=== PATIENT | male | born 1955 ===

== ENCOUNTER 2018-11-06 21:52 | Inpatient (IN) | payer MEDICAID, OTHER ==
[2018-11-07] MEDS: HYDROCODONE/APAP (5/325) TAB PO ×2 (00:24→13:54)
[2018-11-07] MEDS: IBUPROFEN 200 MG TAB PO (00:24)
[2018-11-07] MEDS: PIPER-TAZO 3.375 GM IV (PMX) 100 ML IVPB (05:04)
[2018-11-07 05:09] LABS: ADD MAN DIFF? NO
[2018-11-07 05:12] LABS: BASOPHILS % 0.3 % (0.0-2.0); EOSINOPHILS # 0.2 10^3/ul (0.0-0.5); EOSINOPHILS % 2.3 % (0.0-7.0); HEMOGLOBIN 9.5 g/dl (14.0-18.0); LYMPHOCYTES # 2.1 10^3/ul (0.8-2.9); LYMPHOCYTES % 29.6 % (15.0-51.0); MEAN CORPUSCULAR HEMOGLOBIN 28.6 pg (29.0-33.0); MEAN CORPUSCULAR HGB CONC 30.6 g/dl (32.0-37.0); MEAN CORPUSCULAR VOLUME 93.4 fl (82.0-101.0); MEAN PLATELET VOLUME 11.2 fl (7.4-10.4); MONOCYTE # 1.1 10^3/ul (0.3-0.9); MONOCYTES % 14.8 % (0.0-11.0); NEUTROPHIL # 3.8 10^3/ul (1.6-7.5); NEUTROPHILS % 52.9 % (39.0-77.0); PLATELET COUNT 271 10^3/UL (140-415); RED BLOOD COUNT 3.32 10^6/ul (4.70-6.10); RED CELL DISTRIBUTION WIDTH 14.7 % (11.5-14.5)
[2018-11-07 05:12] LABS: WHITE BLOOD COUNT 7.1 10^3/ul (4.8-10.8)
[2018-11-07] MEDS: VANCOMYCIN 1 GM (PMX) 250 ML IVPB (05:37)
[2018-11-07] MEDS ORDERED: NACL 0.9% 3 ML SYG IV (06:00)
[2018-11-07] MEDS ORDERED: HYDROCODONE/APAP (5/325) TAB PO (06:00)
[2018-11-07] MEDS ORDERED: ACETAMINOPHEN 325 MG TAB PO (06:00)
[2018-11-07] MEDS ORDERED: VANCOMYCIN IV PER PHARMACY XX (06:00)
[2018-11-07] MEDS ORDERED: ONDANSETRON 4 MG INJ IV (06:00)
[2018-11-07 06:15] LABS: ALANINE AMINOTRANSFERASE 18 IU/L (13-69); ALBUMIN 3.5 g/dl (3.3-4.9); ALBUMIN/GLOBULIN RATIO 0.68; ALKALINE PHOSPHATASE 93 IU/L (42-121); ANION GAP 6 (5-13); ASPARTATE AMINO TRANSFERASE 58 IU/L (15-46); BILIRUBIN,INDIRECT 0.3 mg/dl (0-1.1); BILIRUBIN,TOTAL 0.3 mg/dl (0.2-1.3); BLOOD UREA NITROGEN 12 mg/dl (7-20); C-REACTIVE PROTEIN 1.9 mg/dl (0.0-0.9); CALCIUM 8.9 mg/dl (8.4-10.2); CARBON DIOXIDE 30 mmol/L (21-31); CHLORIDE 108 mmol/L (97-110); CREATININE 0.75 mg/dl (0.61-1.24); Estimated GFR > 60 mL/min (>60); GLUCOSE 82 mg/dl (70-220); POTASSIUM 4.7 mmol/L (3.5-5.1); SODIUM 144 mmol/L (135-144); TOTAL PROTEIN 8.6 g/dl (6.1-8.1)
[2018-11-07 06:30] LABS: ERYTHROCYTE SEDIMENTATION RATE 51 mm/Hr (0-20)
[2018-11-07] MEDS: CEFEPIME 1GM/50 ML (PMX) 50 ML IVPB (07:46)
[2018-11-07] MEDS: ENOXAPARIN 40 MG/0.4 ML SYG SC (09:00)
[2018-11-07] MEDS: LACTOBACILLUS RHAMNOSUS CAP PO ×2 (13:54→20:24)
[2018-11-07] MEDS: VANCOMYCIN 1 GM 250 ML IVPB (18:11)
[2018-11-08] MEDS: HYDROCODONE/APAP (5/325) TAB PO ×2 (03:33→19:45)
[2018-11-08] MEDS: VANCOMYCIN 1 GM 250 ML IVPB ×2 (05:10→18:54)
[2018-11-08] MEDS: ENOXAPARIN 40 MG/0.4 ML SYG SC (09:00)
[2018-11-08] MEDS: LACTOBACILLUS RHAMNOSUS CAP PO ×2 (09:00→21:00)
[2018-11-08] MEDS: METHADONE (1 MG/ML 5 ML PO UD SYG) PO (14:38)
[2018-11-08 18:17] LABS: ADD MAN DIFF? NO
[2018-11-08 18:21] LABS: WHITE BLOOD COUNT 6.2 10^3/ul (4.8-10.8)
[2018-11-08 18:21] LABS: BASOPHILS % 0.2 % (0.0-2.0); EOSINOPHILS % 0.5 % (0.0-7.0); HEMATOCRIT 33.2 % (42.0-52.0); HEMOGLOBIN 10.3 g/dl (14.0-18.0); LYMPHOCYTES # 1.5 10^3/ul (0.8-2.9); LYMPHOCYTES % 24.8 % (15.0-51.0); MEAN CORPUSCULAR HEMOGLOBIN 28.1 pg (29.0-33.0); MEAN CORPUSCULAR VOLUME 90.7 fl (82.0-101.0); MEAN PLATELET VOLUME 10.6 fl (7.4-10.4); MONOCYTE # 0.5 10^3/ul (0.3-0.9); MONOCYTES % 8.7 % (0.0-11.0); NEUTROPHIL # 4.1 10^3/ul (1.6-7.5); NEUTROPHILS % 65.5 % (39.0-77.0); PLATELET COUNT 299 10^3/UL (140-415); RED BLOOD COUNT 3.66 10^6/ul (4.70-6.10); RED CELL DISTRIBUTION WIDTH 14.3 % (11.5-14.5)
[2018-11-08 18:39] LABS: ANION GAP 9 (5-13); BLOOD UREA NITROGEN 15 mg/dl (7-20); CALCIUM 8.7 mg/dl (8.4-10.2); CARBON DIOXIDE 24 mmol/L (21-31); CHLORIDE 108 mmol/L (97-110); CHOL/HDL RATIO 5.5 RATIO; CHOLESTEROL 155 mg/dl (100-200); CREATININE 0.76 mg/dl (0.61-1.24); Estimated GFR > 60 mL/min (>60); GLUCOSE 72 mg/dl (70-220); HDL CHOLESTEROL 28 mg/dl (30-78); LDL CHOLESTEROL,CALCULATED 111 mg/dl; MAGNESIUM 1.7 mg/dl (1.7-2.5); PHOSPHORUS 4.8 mg/dl (2.5-4.9); POTASSIUM 4.3 mmol/L (3.5-5.1); SODIUM 141 mmol/L (135-144); TRIGLYCERIDES 79 mg/dl (0-149)
[2018-11-08 18:41] LABS: INR 1.08; PROTIME 14.1 Sec (11.9-14.9); PT RATIO 1.1
[2018-11-08 18:43] LABS: VANCOMYCIN,TROUGH 13.7 ug/ml (10.0-20.0)
[2018-11-08 18:50] LABS: IRON 37 ug/dl (35-150)
[2018-11-08 18:59] LABS: % IRON SATURATION 16 % SAT (22-52); TOTAL IRON BINDING CAPACITY 234 ug/dl (241-421)
[2018-11-08] MEDS: ZYVOX 600 MG TAB PO (23:20)
[2018-11-09] MEDS: VANCOMYCIN 1 GM 250 ML IVPB ×2 (05:48→17:05)
[2018-11-09] MEDS: ZYVOX 600 MG TAB PO (05:48)
[2018-11-09 06:26] LABS: ADD UMIC NO; UR ASCORBIC ACID NEGATIVE (NEGATIVE); UR BILIRUBIN (Dip) NEGATIVE (NEGATIVE); UR BLOOD (Dip) NEGATIVE (NEGATIVE); UR CLARITY SLIGHTLY CLOUDY (CLEAR); UR COLOR YELLOW (YELLOW); UR GLUCOSE (Dip) NEGATIVE (NEGATIVE); UR KETONES (Dip) TRACE mg/dL (NEGATIVE); UR LEUKOCYTE ESTERASE (Dip) NEGATIVE Leu/ul (NEGATIVE); UR MUCUS FEW /HPF (NONE SEEN); UR NITRITE (Dip) NEGATIVE (NEGATIVE); UR RBC 1 /HPF (0-5); UR SPECIFIC GRAVITY (Dip) 1.023 (1.003-1.030); UR TOTAL PROTEIN (Dip) NEGATIVE (NEGATIVE); UR UROBILINOGEN (Dip) 1+ mg/dL (NEGATIVE); UR WBC 3 /HPF (0-5)
[2018-11-09 06:50] LABS: AMPHETAMINE/METHAMPHETAMINE NEGATIVE (NEGATIVE); BARBITURATES NEGATIVE (NEGATIVE); BENZODIAZEPINES NEGATIVE (NEGATIVE); CANNABINOIDS NEGATIVE (NEGATIVE); COCAINE NEGATIVE (NEGATIVE); OPIATES POSITIVE (NEGATIVE)
[2018-11-09] MEDS: ENOXAPARIN 40 MG/0.4 ML SYG SC (09:00)
[2018-11-09] MEDS ORDERED: METHADONE 1 MG/ML (ORAL SOLN) PO (09:00)
[2018-11-09] MEDS: METHADONE 10 MG TAB PO (09:33)
[2018-11-09] MEDS: LACTOBACILLUS RHAMNOSUS CAP PO (09:34)
== END 2018-11-09 19:30 | disposition home or self-care (01) | DRG 607 ==
LOC: FTE 21:52 → PP2 11-07 05:16
DX: R23.8 Other skin changes (principal); M79.672 Pain in left foot; R60.0 Localized edema; G89.29 Other chronic pain; D64.9 Anemia, unspecified; F17.200 Nicotine dependence, unspecified, uncomplicated; R62.7 Adult failure to thrive; Z68.22 Body mass index [BMI] 22.0-22.9, adult; M19.072 Primary osteoarthritis, left ankle and foot
CPT/HCPCS: 36415; 73630-LT; 73718; 80048; 80053; 80061; 80202; 80307; 81001; 81003; 82728; 83036; 83540; 83735; 84100; 84443; 85025; 85610; 85651; 86140; 87040-91; 87081; 93971; 96374; 99285-25